=== PATIENT | male | born 1980 | race Asian ===

== ENCOUNTER 2017-05-22 17:16 | Emergency (ER) | payer SELFPAY ==
[2017-05-22 17:25] VITALS: BP 115/72
--- NOTE | 2017-05-22 17:46 | UC ---
Upper Extremity HPI - HPI Summary HPI Summary: 36M presents with right hand injury. He was at work and tried to lift the dough out of the mixing and the mixing was still spinning a little and pinned his hand between the wall of the bowl and the mixer. He states pain is greatest at base of thumb and has some ecchmyosis there. He took ibuprofen and it helped with pain as it is minimal now. He denies any numbness or tingling. He denies any previous injury to the area. He is right handed. 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 <Court Hector - Last Filed: 05/22/17 18:10> <Tiffanie Ragsdale - Last Filed: 05/22/17 18:58> - History of Current Complaint Chief Complaint: UCUpperExtremity Stated Complaint: HAND INJURY WC Time Seen by Provider: 05/22/17 17:30 - Allergies/Home Medications Allergies/Adverse Reactions: Allergies Allergy/AdvReac Type Severity Reaction Status Date / Time No Known Allergies Allergy Verified 05/22/17 17:25 Home Medications: Home Medications Ibuprofen TAB* [Advil TAB*] 200 mg PO PRN 05/22/17 [History] PMH/Surg Hx/FS Hx/Imm Hx Endocrine History: Other Other Endocrine History: no DM Cardiovascular History: Other Other Cardiovascular History: No CAD - Surgical History Surgical History: Yes Surgery Procedure, Year, and Place: FINGER SURGERY - Family History Known Family History: Positive: Cardiac Disease - Social History Alcohol Use: Occasionally Substance Use Type: None Smoking Status (MU): Current Some Day Smoker Type: Cigarettes <Court Hector - Last Filed: 05/22/17 18:10> Review of Systems Constitutional: Negative Respiratory: Negative Cardiovascular: Negative Musculoskeletal: Arthralgia - right hand pain All Other Systems Reviewed And Are Negative: Yes <Court Hector - Last Filed: 05/22/17 18:10> Physical Exam Triage Information Reviewed: Yes Appearance: Well-Appearing Vital Signs: Initial Vital Signs Temp 98.4 F 05/22/17 17:21 Pulse 64 05/22/17 17:21 Resp 16 05/22/17 17:21 BP 115/72 05/22/17 17:21 Pulse Ox 99 05/22/17 17:21 Eye Exam: Normal ENT Exam: Normal Respiratory: Positive: Lungs clear, Normal breath sounds Cardiovascular: Positive: RRR Musculoskeletal: Positive: Strength Intact - index, middle, ring, pinky finger, ROM Limited @ - right thumb, Other: - good pulses, capillary refill<2secs, tenderness and ecchmyosis of snuff box <Court Hector - Last Filed: 05/22/17 18:10> Vital Signs: Initial Vital Signs Temp 98.4 F 05/22/17 17:21 Pulse 64 05/22/17 17:21 Resp 16 05/22/17 17:21 BP 115/72 05/22/17 17:21 Pulse Ox 99 05/22/17 17:21 <Tiffanie Ragsdale - Last Filed: 05/22/17 18:58> Diagnostics - Radiology hand Xray Interpretation: No Acute Changes Radiology Interpretation Completed By: Radiologist <Court Hector - Last Filed: 05/22/17 18:10> Upper Extremity Course/Dx - Course Course Of Treatment: 36M presents with right hand injury. He was at work and tried to lift the dough out of the mixing and the mixing was still spinning a little and pinned his hand between the wall of the bowl and the mixer. He states pain is greatest at base of thumb and has some ecchmyosis there. He took ibuprofen and it helped with pain as it is minimal now. He denies any numbness or tingling. He denies any previous injury to the area. He is right handed. on exam ecchomysis and tenderness off the snuff box. nontender wrist. good pulses, capillary refill<2 secs. xray read by me as normal and confirmed by radiology. due to snuff box tenderness will treat as scaphoid fracture. patient would like prefabrinated thumb spica splint. explained that can not take it off. patient understands and agrees with plan. - Differential Dx/Diagnosis Differential Diagnosis/HQI/PQRI: Fracture (Closed), Strain, Sprain Provider Diagnoses: scaphoid fracture right <Court Hector - Last Filed: 05/22/17 18:10> Discharge <Court Hector - Last Filed: 05/22/17 18:10> <Tiffanie Ragsdale - Last Filed: 05/22/17 18:58> - Discharge Plan Condition: Good Disposition: HOME Patient Education Materials: Scaphoid Fracture (ED) Forms: *Work Release Referrals: [facility] [place] [facility] [Outside] Rahul Holland MD [Medical Doctor] - Additional Instructions: You are being treated for a potential scaphoid fracture Follow up with ortho in a week Keep splint on area and do not remove Take Tylenol or ibuprofen every 6 hours as needed for pain Apply ice, rest, elevate Return to ED if develop any new or worsening symptoms Attestation Statement User Type: Provider - I was available for consult. This patient was seen by the FEDE. The patient was not presented to, seen by, or examined by me. -Shree <Tiffanie Ragsdale - Last Filed: 05/22/17 18:58>
--- NOTE | 2017-05-22 18:03 | RAD ---
Indication: Crush injury to right hand. 4 views of the right hand demonstrates no fracture. Special attention was paid to the first and second metacarpal. Joint spaces all well-preserved. IMPRESSION: No fracture of the right hand noted.
== END 2017-05-22 18:18 | disposition home or self-care (01) ==
LOC: UCEAST 17:16
DX: S62.001A Unspecified fracture of navicular [scaphoid] bone of right wrist, initial encounter for closed fracture (principal); X50.0XXA Overexertion from strenuous movement or load, initial encounter; F17.210 Nicotine dependence, cigarettes, uncomplicated
CPT/HCPCS: 99212; G0463